=== PATIENT | male | born 1985 | race Caucasian/White ===

== ENCOUNTER 2020-04-27 01:24 | Emergency (ER) | payer SELFPAY ==
[2020-04-27] MEDS ORDERED: Dicyclomine 10 MG Cap PO STA (02:21)
[2020-04-27] MEDS ORDERED: Ibuprofen 600 MG Tab PO ONE (02:21)
[2020-04-27] MEDS ORDERED: Sodium Chloride 0.9% 1,000 ML IV ONE (02:22)
[2020-04-27] MEDS ORDERED: Ondansetron 4 MG/2 ML SDV IVPUSH ONE (02:22)
[2020-04-27] MEDS ORDERED: cloNIDine 0.1 MG Tab PO ONE (02:25)
--- NOTE | 2020-04-27 02:33 | EDM.PDOCBH ---
ED HPI GENERAL MEDICAL PROBLEM - General Chief Complaint: Drug or Alcohol Abuse Stated Complaint: HEROIN WITHDRAWAL Time Seen by Provider: 04/27/20 01:36 Source of Information: Reports: Patient History Limitations: Reports: No Limitations - History of Present Illness INITIAL COMMENTS - FREE TEXT/NARRATIVE: Mr. Valerio is a pleasant-enough 35-year-old gentleman with a past medical history significant for polysubstance abuse, who now presents to the ED stating that he is suffering from heroin withdrawal. He states that he has been smoking heroin for the past 5 years. He was in treatment in [place] for 4 months in 2016, then in treatment in [place], [place], for 1 month earlier this year. At that time, he was prescribed methadone, which he last took in November. He has been smoking heroin daily ever since. He is now visiting this area for a few days, and has not been able to find any heroin here; he last smoked heroin 3 days ago, on , 04/24/2020. Since then, he states that he has been feeling tremulous, with myalgias, fever, nausea, vomiting, and abdominal cramps. The patient reports that he drank the equivalent of 4 beers and smoked methamphetamine just prior to coming to the ED. He states that he smokes methamphetamine daily, in addition to heroin. The patient is requesting a prescription for methadone or, alternatively, Suboxone or Subutex, just enough to last him until he can get back to [place], in the next 3 or 4 days. Here in the ED, the patient's initial BP is found to be elevated at 146/83, with a tachycardia of 113 bpm. Very shortly, however, his tachycardia resolved. He is afebrile, saturating 97% on room air. Other than his withdrawal symptoms, the patient denies having a recent fever, chills, sore throat, ear pain, nasal or sinus congestion, cough, dyspnea, chest pain, palpitations, constipation, diarrhea, urinary symptoms, recent weight gain or weight loss, recent bloody bowel movements or black bowel movements, recent joint aches, headaches, or rashes. The patient's PCP is in [place], [place]. Knee Pain Score (Numeric/FACES): 7 - Related Data Allergies Allergy/AdvReac Type Severity Reaction Status Date / Time No Known Allergies Allergy Verified 04/27/20 01:53 Home Meds: Home Meds . [No Known Home Meds] 04/27/20 [History] Past Medical History HEENT History: Reports: Impaired Vision (wears contacts) Musculoskeletal History: Reports: Fracture (left wrist) Psychiatric History: Reports: Addiction (polysubstance) - Past Surgical History HEENT Surgical History: Reports: Oral Surgery (dental extractions) Musculoskeletal Surgical History: Reports: Other (See Below) (Left wrist pinning) Social & Family History - Tobacco Use Tobacco Use Status *Q: Current Every Day Tobacco User Years of Tobacco use: 15 Packs/Tins Daily: 0.5 Packs/Tins Daily Comment: Down from 2 ppd - Caffeine Use Caffeine Use: Reports: Coffee - Alcohol Use Alcohol Use History: Yes Alcohol Use Frequency: Socially (occasionally to excess) - Recreational Drug Use Recreational Drug Use: Yes Drug Use in Last 12 Months: Yes Recreational Drug Type: Reports: Cocaine (last snorted 2013), Heroin (smokes daily), Marijuana/Hashish (last smoked late Mar 2020), Methamphetamine (smokes daily), Psilocybin (Mushrooms) (last took Feb 2020) - Living Situation & Occupation Living situation: Reports: Single, with Significant Other (Girlfriend) Occupation: Employed (Self-employed) ED ROS GENERAL - Review of Systems Review Of Systems: Comprehensive ROS is negative, except as noted in HPI. ED EXAM, BEHAVIORAL HEALTH - Physical Exam Exam: See Below Exam Limited By: No Limitations General Appearance: Alert, WD/WN, No Apparent Distress Eye Exam: Bilateral Eye: EOMI, Normal Inspection Ears: Hearing Grossly Normal, Other (Gaged earlobes) Nose: Normal Inspection Throat/Mouth: Normal Inspection, Normal Lips, Normal Voice, No Airway Compromise Head: Atraumatic, Normocephalic Neck: Normal Inspection, Full Range of Motion Respiratory/Chest: No Respiratory Distress, Lungs Clear, Normal Breath Sounds, No Accessory Muscle Use Cardiovascular: Normal Peripheral Pulses, Regular Rate, Rhythm, No Edema, No Gallop, No JVD, No Murmur, No Rub GI/Abdominal: Normal Bowel Sounds, Soft, Non-Tender, No Organomegaly, No Distention, No Abnormal Bruit, No Mass Back Exam: Normal Inspection, Full Range of Motion, NT Extremities: Normal Inspection, Normal Range of Motion, No Pedal Edema, Normal Capillary Refill Neurological: Alert, Normal Cognition, No Motor/Sensory Deficits, Oriented x 3 Psychiatric: Normal Affect Skin Exam: Warm, Dry, Intact, Normal color, No rash COURSE, BEHAVIORAL HEALTH COMP - Course Vital Signs: Last Vital Signs Temp 36.4 C 04/27/20 01:36 Pulse 113 H 04/27/20 01:36 Resp 20 04/27/20 01:36 BP 144/88 H 04/27/20 02:49 Pulse Ox 97 04/27/20 01:36 Orders, Labs, Meds: Laboratory Tests 04/27/20 04/27/20 Range/Units 02:50 02:50 WBC 11.56 H (4.23-9.07) K/mm3 RBC 5.76 (4.63-6.08) M/mm3 Hgb 17.0 (13.7-17.5) gm/dl Hct 50.4 (40.1-51.0) % MCV 87.5 (79.0-92.2) fl MCH 29.5 (25.7-32.2) pg MCHC 33.7 (32.2-35.5) g/dl RDW Std Deviation 43.9 (35.1-43.9) fL Plt Count 216 (163-337) K/mm3 MPV 9.6 (9.4-12.3) fl Neutrophils % (Manual) 81 H (40-60) % Band Neutrophils % 0 (0-10) % Lymphocytes % (Manual) 14 L (20-40) % Atypical Lymphs % 0 % Monocytes % (Manual) 5 (2-10) % Eosinophils % (Manual) 0 L (0.8-7.0) % Basophils % (Manual) 0 L (0.2-1.2) Platelet Estimate Adequate Plt Morphology Comment Normal RBC Morph Comment Normal Sodium 142 (136-145) mEq/L Potassium 3.5 (3.5-5.1) mEq/L Chloride 105 (98-107) mEq/L Carbon Dioxide 24 (21-32) mEq/L Anion Gap 16.5 H (5-15) BUN 8 (7-18) mg/dL Creatinine 1.2 (0.7-1.3) mg/dL Est Cr Clr Drug Dosing 93.25 mL/min Estimated GFR (MDRD) > 60 (>60) mL/min BUN/Creatinine Ratio 6.7 L (14-18) Glucose 95 (74-106) mg/dL Calcium 9.8 (8.5-10.1) mg/dL Magnesium 1.9 (1.8-2.4) mg/dl Total Bilirubin 0.4 (0.2-1.0) mg/dL AST 22 (15-37) U/L ALT 64 H (16-63) U/L Alkaline Phosphatase 64 (46-116) U/L Total Protein 7.4 (6.4-8.2) g/dl Albumin 4.0 (3.4-5.0) g/dl Globulin 3.4 gm/dL Albumin/Globulin Ratio 1.2 (1-2) Medications Discontinued Medications Generic Name Dose Route Start Last Admin Trade Name Freq PRN Reason Stop Dose Admin Clonidine HCl 0.1 mg 04/27/20 02:25 04/27/20 02:49 Catapres PO 04/27/20 02:26 0.1 mg ONETIME ONE Administration Dicyclomine HCl 20 mg 04/27/20 02:21 04/27/20 02:48 Bentyl PO 04/27/20 02:22 20 mg ONETIME STA Administration Sodium Chloride 1,000 mls @ 999 mls/hr 04/27/20 02:22 04/27/20 02:49 Normal Saline IV 04/27/20 03:22 999 mls/hr ONETIME ONE Administration Ibuprofen 600 mg 04/27/20 02:21 04/27/20 02:48 Motrin PO 04/27/20 02:22 600 mg ONETIME ONE Administration Ondansetron HCl 4 mg 04/27/20 02:22 04/27/20 02:48 Zofran IVPUSH 04/27/20 02:23 4 mg ONETIME ONE Administration Medical Clearance: 04/27/20 02:25 As above, the patient is here for treatment of withdrawal symptoms from heroin, while at the same time he acknowledges that he drank the equivalent of 4 beers and smoked methamphetamine just prior to coming to the ED. He reports feeling tremulous, myalgias, fever, nausea, vomiting, and abdominal cramps for the past 36 hours. He was hoping that we could prescribe some methadone, or, alternatively, Suboxone or Subutex. I explained that if the patient were already on one of those medicines and was hospitalized, we could continue it in the inpatient setting, however, I cannot prescribe any of those medications, as I do not currently have a SHIVANI waiver to do so. The only thing that I can offer the patient at this time is to treat his individual symptoms, with clonidine for his tremulousness and cravings, ibuprofen for his myalgias, Bentyl for his abdominal cramps, and Zofran for his nausea and vomiting. In the meantime, I will check some blood work to make sure that he does not have any significant electrolyte abnormalities that need to be corrected. He will be given IV fluid. The patient will have to follow-up at [facility] on Tuesday morning, however, I am certain that they do not prescribe these types of medicines, either, however, they should be able to direct him to a physician or facility that does. 04/27/20 04:22 The patient's CBC is remarkable for WBC count elevated at 11.56, but with 0% bandemia. The remainder of his CBC is unremarkable. His CMP is remarkable for an anion gap slightly elevated at 16.5, but with a bicarbonate normal at 24. His ALT is slightly elevated at 64, with an AST normal at 22, and the remainder of his CMP being unremarkable. His magnesium level is within normal limits at 1.9. Notified by Marissa MONDRAGON that the patient attempted to elope the ED without notification. She was able to stop him and demand that his IV be removed. He initially told her that he already removed it, but she called his bluff. She told him that she would call the police if the IV was not removed. He then removed his IV and threw it into the trash. He then left the ED. It appears that the patient was attempting to leave the ED with IV access, presumably for drug use. Departure - Departure Time of Disposition: 04:26 Disposition: Eloped 07 Condition: Good Clinical Impression: Polysubstance abuse, Heroin withdrawal - Discharge Information *PRESCRIPTION DRUG MONITORING PROGRAM REVIEWED*: Not Applicable *COPY OF PRESCRIPTION DRUG MONITORING REPORT IN PATIENT ARIK: Not Applicable Referrals: PCP,Not In Area [Primary Care Provider] - Forms: ED Department Discharge Sepsis Event Note (ED) - Evaluation Sepsis Screening Result: No Definite Risk - Focused Exam Vital Signs: Vital Signs Temp Pulse Resp BP BP Pulse Ox 04/27/20 02:49 144/88 H 04/27/20 01:36 36.4 C 113 H 20 146/83 H 97
== END 2020-04-27 04:20 | disposition left against medical advice (07) ==
LOC: JD.ED 01:24
DX: F11.23 Opioid dependence with withdrawal (principal); F19.10 Other psychoactive substance abuse, uncomplicated; F17.210 Nicotine dependence, cigarettes, uncomplicated
CPT/HCPCS: 36415; 80053; 83735; 85007; 85027; 96374; 99284; A9270; J2405; J7030